=== PATIENT | male | born 1975 | race Caucasian/White ===

== ENCOUNTER 2021-08-07 15:18 | Inpatient (IN) | payer OTHER, SELFPAY ==
[2021-08-07 15:46] LABS: #Basophils 0.1 10x3/uL (0.0-0.2); #Eosinphils 0.3 10x3/uL (0.0-0.5); #Neutrophils 8.4 10x3/uL (1.5-8.4); %Basophils 0.5 % (0.0-2.0); %Eosinophils 2.2 % (0.0-6.0); %Lymphocytes 16.2 % (18.0-47.0); %Monocytes 8.3 % (0.0-10.0); %Neutrophils 72.4 % (40.0-75.0); Hemoglobin 15.2 g/dL (13.5-17.5); Mean Corpuscular HGB CONC 31.7 g/dL (32.0-36.0); Mean Corpuscular Hemoglobin 28.6 pg (27.0-33.0); Mean Corpuscular Volume 90.4 fl (81.2-95.1); Mean Platelet Volume 11.9 fl (7.4-10.4); Platelet Count 237 10x3/uL (150-450); RBC Distribution Width 15.8 % (11.5-14.5); Red Blood Cell (RBC) Count 5.31 10x6/uL (4.32-5.72); White Blood Cell (WBC) Count 11.6 10x3/uL (3.5-10.5)
[2021-08-07] MEDS ORDERED: Furosemide 40 MG/4 ML VIAL ONE (15:46)
[2021-08-07] MEDS ORDERED: Acetaminophen 500 MG TAB ONE (15:51)
[2021-08-07 16:10] LABS: ALT (SGPT) 105 U/L (8-55); AST (SGOT) 78 U/L (5-34); Albumin 3.8 g/dL (3.5-5.0); Alkaline Phosphatase 80 U/L (40-110); Anion Gap 15 mmol/L (10-20); BUN (Urea Nitrogen) 17 mg/dL (8.9-20.6); Bilirubin, Total 1.1 mg/dL (0.2-1.2); Calc. Creatinine Clearance 0 mL/min (70-130); Calcium 8.4 mg/dL (7.8-10.44); Carbon Dioxide 25 mmol/L (22-29); Chloride 104 mmol/L (98-107); Globulin 2.7 g/dL (2.4-3.5); Glucose 165 mg/dL (70-105); Potassium 4.6 mmol/L (3.5-5.1); Protein, Total 6.5 g/dL (6.0-8.3); Sodium 139 mmol/L (136-145)
[2021-08-07 16:34] LABS: CKMB 9.8 ng/mL (0-6.6)
[2021-08-07 17:27] LABS: SARS-CoV-2 NAA Rapid Test Not Detected (NotDetected)
[2021-08-07] MEDS ORDERED: Ondansetron PF 4 MG/2 ML Vial ONE (19:48)
[2021-08-07 20:05] LABS: Magnesium 1.9 mg/dL (1.6-2.6)
[2021-08-07 20:16] LABS: Troponin I 0.057 ng/mL (< 0.028)
[2021-08-07] MEDS ORDERED: Furosemide 40 MG/4 ML VIAL SLOW IVP SCH (22:00)
[2021-08-07] MEDS ORDERED: Carvedilol 3.125 MG TAB PO SCH (22:45)
[2021-08-07 23:38] LABS: Troponin I 0.051 ng/mL (< 0.028)
[2021-08-08] MEDS ORDERED: Potassium Chloride 20 MEQ TAB PO SCH (02:15)
[2021-08-08 03:38] VITALS: BMI 38.1
[2021-08-08 05:05] LABS: #Basophils 0.1 10x3/uL (0.0-0.2); #Eosinphils 0.4 10x3/uL (0.0-0.5); #Neutrophils 6.9 10x3/uL (1.5-8.4); %Basophils 0.7 % (0.0-2.0); %Eosinophils 3.5 % (0.0-6.0); %Lymphocytes 16.8 % (18.0-47.0); %Monocytes 9.7 % (0.0-10.0); Hemoglobin 13.8 g/dL (13.5-17.5); Mean Corpuscular HGB CONC 30.9 g/dL (32.0-36.0); Mean Corpuscular Hemoglobin 28.2 pg (27.0-33.0); Mean Corpuscular Volume 91.2 fl (81.2-95.1); Mean Platelet Volume 12.5 fl (7.4-10.4); Platelet Count 198 10x3/uL (150-450); RBC Distribution Width 15.8 % (11.5-14.5)
[2021-08-08 05:17] LABS: Anion Gap 13 mmol/L (10-20); BUN (Urea Nitrogen) 22 mg/dL (8.9-20.6); Calc. Creatinine Clearance 193 mL/min (70-130); Calcium 7.6 mg/dL (7.8-10.44); Carbon Dioxide 25 mmol/L (22-29); Cardiac Risk 5.5 (Less than 4.5); Chloride 105 mmol/L (98-107); Cholesterol 82 mg/dl (< 200 Desired); Glucose 110 mg/dL (70-105); HDL Cholesterol 15 mg/dL (>60 Neg Risk); LDL Cholesterol, Calculated 49 mg/dL; Potassium 3.9 mmol/L (3.5-5.1); Sodium 139 mmol/L (136-145); Triglycerides 91 mg/dL (Less than 150)
[2021-08-08] MEDS: Furosemide 40 MG/4 ML VIAL SLOW IVP SCH ×2 (06:40→13:55)
[2021-08-08] MEDS ORDERED: HumaLOG 300 UNITS/3 ML VIAL SC PRN ×2 (07:27)
[2021-08-08] MEDS ORDERED: Dextrose 5% in Water 1,000 ML IV PRN (07:27)
[2021-08-08] MEDS ORDERED: Dextrose 50% Abboject 50 ML SYRINGE SLOW IVP PRN (07:27)
[2021-08-08] MEDS: Spironolactone 25 MG TAB PO SCH (08:57)
[2021-08-08] MEDS: Carvedilol 3.125 MG TAB PO SCH ×2 (08:58→17:59)
[2021-08-08] MEDS: Aspirin Chewable 81 MG TAB PO SCH (08:58)
[2021-08-08] MEDS ORDERED: FLU VACC QS2021-22(6MOS UP)/PF 60 MCG/0.5 ML SYRINGE IM ONE (09:00)
[2021-08-08] MEDS ORDERED: Enoxaparin Sodium 40 MG/0.4 ML SYRINGE SC SCH (09:00)
[2021-08-08] MEDS ORDERED: Magnesium 2 GM/50 ML 2 GM in Premix Bag 1 BAG IVPB SCH (10:00)
[2021-08-08] MEDS ORDERED: Magnesium Sulfate 2 GM in Sodium Chloride 0.9% 100 ML IVPB SCH (10:00)
[2021-08-08 10:41] LABS: Anion Gap 14 mmol/L (10-20); BUN (Urea Nitrogen) 19 mg/dL (8.9-20.6); Calc. Creatinine Clearance 191 mL/min (70-130); Calcium 7.7 mg/dL (7.8-10.44); Carbon Dioxide 30 mmol/L (22-29); Chloride 101 mmol/L (98-107); Glucose 146 mg/dL (70-105); Potassium 4.3 mmol/L (3.5-5.1); Sodium 141 mmol/L (136-145)
[2021-08-08 11:17] LABS: Hemoglobin A1c 7.3 % (4.0-6.0)
[2021-08-09 04:54] LABS: Anion Gap 13 mmol/L (10-20); BUN (Urea Nitrogen) 19 mg/dL (8.9-20.6); Calc. Creatinine Clearance 173 mL/min (70-130); Calcium 7.8 mg/dL (7.8-10.44); Carbon Dioxide 31 mmol/L (22-29); Chloride 101 mmol/L (98-107); Glucose 141 mg/dL (70-105); Potassium 4.4 mmol/L (3.5-5.1); Sodium 141 mmol/L (136-145)
[2021-08-09] MEDS: Furosemide 40 MG/4 ML VIAL SLOW IVP SCH ×2 (06:05→14:31)
[2021-08-09] MEDS ORDERED: Enoxaparin Sodium 40 MG/0.4 ML SYRINGE SC SCH (09:00)
[2021-08-09] MEDS: Aspirin Chewable 81 MG TAB PO SCH (09:12)
[2021-08-09] MEDS: Carvedilol 3.125 MG TAB PO SCH ×2 (09:12→16:18)
[2021-08-09] MEDS: Spironolactone 25 MG TAB PO SCH (09:12)
[2021-08-09] MEDS ORDERED: Magnesium Citrate 300 ML BOT PO SCH (15:00)
[2021-08-10 04:32] LABS: Anion Gap 13 mmol/L (10-20); BUN (Urea Nitrogen) 16 mg/dL (8.9-20.6); Calc. Creatinine Clearance 216 mL/min (70-130); Calcium 7.9 mg/dL (7.8-10.44); Carbon Dioxide 27 mmol/L (22-29); Chloride 105 mmol/L (98-107); Glucose 124 mg/dL (70-105); Potassium 4.1 mmol/L (3.5-5.1); Sodium 141 mmol/L (136-145)
[2021-08-10] MEDS: Carvedilol 3.125 MG TAB PO SCH ×2 (05:28→16:13)
[2021-08-10] MEDS ORDERED: Vancomycin 1.5 GRAM/300 ML BAG 1.5 GM in Premix Bag 1 BAG IVPB SCH (05:30)
[2021-08-10] MEDS ORDERED: CEFAZOLIN 1 GM VIAL ONE ×2 (06:36→07:35)
[2021-08-10] MEDS ORDERED: Gentamicin 80 MG/2 ML VIAL ONE ×2 (06:37→06:39)
[2021-08-10] MEDS ORDERED: Fentanyl 100 MCG/2 ML VIAL ONE (06:40)
[2021-08-10] MEDS ORDERED: Ketamine 50 MG/ML (10ML VIAL) ONE (06:41)
[2021-08-10] MEDS ORDERED: Midazolam HCl 2 mg/2 ml Vial ONE (06:41)
[2021-08-10] MEDS ORDERED: Propofol 1,000 MG/100 ML VIAL IV ONE (06:42)
[2021-08-10] MEDS ORDERED: Lidocaine 1% (PF) 30 ML VIAL ONE (06:45)
[2021-08-10] MEDS: Furosemide 40 MG/4 ML VIAL SLOW IVP SCH ×2 (13:10→13:11)
[2021-08-10] MEDS: Bisacodyl 10 MG SUPP PR SCH ×2 (13:11→16:14)
[2021-08-10] MEDS: Spironolactone 25 MG TAB PO SCH (13:11)
[2021-08-10] MEDS: Aspirin Chewable 81 MG TAB PO SCH (13:11)
[2021-08-10] MEDS ORDERED: CEFAZOLIN 2 GM in Premix Bag 1 BAG IVPB SCH (14:00)
[2021-08-10] MEDS ORDERED: Piperacillin/Tazobactam 3.375 GM in Sodium Chloride 0.9% 100 ML IVPB SCH ×4 (17:00→22:15)
[2021-08-10 18:55] LABS: Bilirubin Neg (Negative); Blood, Urine Negative (Negative); Clarity Clear (Clear); Glucose, Urine (Dipstick) Normal (Negative); Ketone, Urine Negative (Negative); Leukocyte Negative (Negative); Nitrite Negative (Negative); Protein, Urine (Dipstick) Negative (Neg-Trace); Specific Gravity, Urine 1.005 (1.002-1.036); Urobilinogen Normal mg/dL (Less than 2)
[2021-08-10 19:00] LABS: Urine Culture Reflex No No
[2021-08-10 19:02] LABS: Bacteria/HPF None Seen HPF (None Seen); RBC/HPF None Seen HPF (0-3); Squamous Epithelial None Seen HPF (0-3); WBC/HPF None Seen HPF (0-3)
[2021-08-10] MEDS ORDERED: Piperacillin/Tazobactam 3.375 GM VIAL ONE (22:21)
[2021-08-11] MEDS ORDERED: Piperacillin/Tazobactam 3.375 GM in Sodium Chloride 0.9% 100 ML IVPB SCH (02:00)
[2021-08-11 04:31] LABS: Phosphorus 3.9 mg/dL (2.3-4.7)
[2021-08-11 04:48] LABS: Anion Gap 14 mmol/L (10-20); BUN (Urea Nitrogen) 15 mg/dL (8.9-20.6); Calc. Creatinine Clearance 178 mL/min (70-130); Calcium 7.9 mg/dL (7.8-10.44); Carbon Dioxide 27 mmol/L (22-29); Chloride 105 mmol/L (98-107); Glucose 255 mg/dL (70-105); Magnesium 1.9 mg/dL (1.6-2.6); Potassium 3.5 mmol/L (3.5-5.1); Sodium 142 mmol/L (136-145)
[2021-08-11] MEDS: Furosemide 40 MG/4 ML VIAL SLOW IVP SCH (05:53)
[2021-08-11] MEDS ORDERED: Clindamycin 150 MG CAP PO SCH (09:00)
[2021-08-11] MEDS: Aspirin Chewable 81 MG TAB PO SCH (09:26)
[2021-08-11] MEDS: Carvedilol 3.125 MG TAB PO SCH (09:26)
[2021-08-11] MEDS: Spironolactone 25 MG TAB PO SCH (09:26)
[2021-08-11] MEDS ORDERED: Potassium Chloride 20 MEQ TAB PO SCH (11:00)
[2021-08-11 12:22] VITALS: BP 134/81; TEMP 97.6
[2021-08-11] MEDS ORDERED: Furosemide 20 MG TAB PO SCH (14:00)
== END 2021-08-11 15:43 | disposition home or self-care (01) | DRG 226 ==
LOC: CSHERS 15:18 → CSHTELE 20:36
PROVIDERS: ADMIT Family Medicine; ATTEND Family Medicine
PROC: 0JH608Z Insertion of Defibrillator Generator into Chest Subcutaneous Tissue and Fascia, Open Approach (ICD-10-PCS; principal; 2021-08-10)
PROC: 02HK3KZ Insertion of Defibrillator Lead into Right Ventricle, Percutaneous Approach (ICD-10-PCS; 2021-08-10)
PROC: 02H63KZ Insertion of Defibrillator Lead into Right Atrium, Percutaneous Approach (ICD-10-PCS; 2021-08-10)
DX: I11.0 Hypertensive heart disease with heart failure (principal); I50.43 Acute on chronic combined systolic (congestive) and diastolic (congestive) heart failure; I49.01 Ventricular fibrillation; I47.2 Ventricular tachycardia; K61.1 Rectal abscess; Z20.822 Contact with and (suspected) exposure to COVID-19; E11.9 Type 2 diabetes mellitus without complications; N50.89 Other specified disorders of the male genital organs; K59.00 Constipation, unspecified; I49.5 Sick sinus syndrome; G47.33 Obstructive sleep apnea (adult) (pediatric); F11.21 Opioid dependence, in remission; R77.8 Other specified abnormalities of plasma proteins; I42.8 Other cardiomyopathies; I49.3 Ventricular premature depolarization
CPT/HCPCS: 33249; 36415; 36416; 71045; 76870; 80048; 80053; 80061; 81001; 82553; 83036; 83605; 83735; 83880; 84100; 84484; 85025; 87040; 87591; 93005; 93010; 93976; 94760; 96374; 96375; C1777; J0690; J1580; J1650; J1815; J1940; J2001; J2250; J2405; J2543; J2704; J3010; J3370; J3475; J3490; U0002

== ENCOUNTER 2021-09-22 16:26 | Inpatient (IN) | payer OTHER, SELFPAY ==
[2021-09-22 17:20] LABS: #Basophils 0.1 10x3/uL (0.0-0.2); #Eosinphils 0.5 10x3/uL (0.0-0.5); #Monocytes 0.9 10x3/uL (0.0-1.1); #Neutrophils 7.7 10x3/uL (1.5-8.4); %Basophils 0.8 % (0.0-2.0); %Eosinophils 4.2 % (0.0-6.0); %Lymphocytes 20.1 % (18.0-47.0); %Monocytes 7.7 % (0.0-10.0); %Neutrophils 66.9 % (40.0-75.0); Hemoglobin 15.6 g/dL (13.5-17.5); Mean Corpuscular HGB CONC 32.1 g/dL (32.0-36.0); Mean Corpuscular Hemoglobin 27.3 pg (27.0-33.0); Mean Corpuscular Volume 85.1 fl (81.2-95.1); Mean Platelet Volume 11.4 fl (7.4-10.4); Platelet Count 310 10x3/uL (150-450); RBC Distribution Width 15.8 % (11.5-14.5); Red Blood Cell (RBC) Count 5.71 10x6/uL (4.32-5.72); White Blood Cell (WBC) Count 11.6 10x3/uL (3.5-10.5)
[2021-09-22 17:35] LABS: ALT (SGPT) 88 U/L (8-55); AST (SGOT) 57 U/L (5-34); Albumin 3.8 g/dL (3.5-5.0); Alkaline Phosphatase 80 U/L (40-110); Anion Gap 15 mmol/L (10-20); BUN (Urea Nitrogen) 23 mg/dL (8.9-20.6); Bilirubin, Total 1.3 mg/dL (0.2-1.2); Calc. Creatinine Clearance 0 mL/min (70-130); Calcium 8.7 mg/dL (7.8-10.44); Carbon Dioxide 23 mmol/L (22-29); Chloride 102 mmol/L (98-107); Globulin 2.5 g/dL (2.4-3.5); Glucose 146 mg/dL (70-105); Potassium 4.9 mmol/L (3.5-5.1); Protein, Total 6.3 g/dL (6.0-8.3); Sodium 135 mmol/L (136-145)
[2021-09-22] MEDS ORDERED: Furosemide 100 MG/10 ML VIAL ONE (18:31)
[2021-09-23 04:09] LABS: Anion Gap 11 mmol/L (10-20); BUN (Urea Nitrogen) 23 mg/dL (8.9-20.6); Calc. Creatinine Clearance 0 mL/min (70-130); Calcium 8.2 mg/dL (7.8-10.44); Carbon Dioxide 30 mmol/L (22-29); Chloride 100 mmol/L (98-107); Glucose 198 mg/dL (70-105); Potassium 3.8 mmol/L (3.5-5.1); Sodium 137 mmol/L (136-145); Uric Acid 10.6 mg/dL (3.5-7.2)
[2021-09-23 04:10] LABS: #Basophils 0.1 10x3/uL (0.0-0.2); #Eosinphils 0.9 10x3/uL (0.0-0.5); #Monocytes 0.7 10x3/uL (0.0-1.1); #Neutrophils 5.9 10x3/uL (1.5-8.4); %Eosinophils 9.6 % (0.0-6.0); %Lymphocytes 19.1 % (18.0-47.0); %Monocytes 7.5 % (0.0-10.0); %Neutrophils 62.6 % (40.0-75.0); Hemoglobin 14.7 g/dL (13.5-17.5); Mean Corpuscular HGB CONC 32.5 g/dL (32.0-36.0); Mean Corpuscular Hemoglobin 27.8 pg (27.0-33.0); Mean Corpuscular Volume 85.4 fl (81.2-95.1); Mean Platelet Volume 11.5 fl (7.4-10.4); Platelet Count 248 10x3/uL (150-450); RBC Distribution Width 16.2 % (11.5-14.5); Red Blood Cell (RBC) Count 5.29 10x6/uL (4.32-5.72); White Blood Cell (WBC) Count 9.4 10x3/uL (3.5-10.5)
[2021-09-23 04:13] LABS: Troponin I 0.023 ng/mL (< 0.028)
[2021-09-23 04:14] LABS: SARS-CoV-2 NAA Rapid Test Not Detected (NotDetected)
[2021-09-23] MEDS ORDERED: Furosemide 100 MG/10 ML VIAL ONE (05:43)
[2021-09-23] MEDS: Furosemide 100 MG/10 ML VIAL SLOW IVP SCH ×2 (05:45→14:56)
[2021-09-23] MEDS ORDERED: Potassium Chloride 20 MEQ TAB PO SCH (06:30)
[2021-09-23] MEDS ORDERED: Potassium Chloride 20 MEQ TAB ONE (07:19)
[2021-09-23] MEDS ORDERED: Aspirin Chewable 81 MG TAB ONE (07:36)
[2021-09-23] MEDS ORDERED: Enoxaparin Sodium 40 MG/0.4 ML SYRINGE ONE (07:36)
[2021-09-23] MEDS ORDERED: Carvedilol 3.125 MG TAB ONE (07:38)
[2021-09-23] MEDS ORDERED: Spironolactone 25 MG TAB PO SCH ×2 (08:00→15:30)
[2021-09-23] MEDS: Enoxaparin Sodium 40 MG/0.4 ML SYRINGE SC SCH (08:19)
[2021-09-23] MEDS: Carvedilol 3.125 MG TAB PO SCH ×2 (08:19→14:56)
[2021-09-23] MEDS: Aspirin 81 mg Enteric Coated Tablet PO SCH (08:19)
[2021-09-23 14:06] VITALS: BMI 34.4
[2021-09-23] MEDS: Carvedilol 6.25 MG TAB PO SCH (18:26)
[2021-09-24 05:47] LABS: #Basophils 0.1 10x3/uL (0.0-0.2); #Eosinphils 1.1 10x3/uL (0.0-0.5); #Monocytes 0.9 10x3/uL (0.0-1.1); #Neutrophils 5.2 10x3/uL (1.5-8.4); %Basophils 0.8 % (0.0-2.0); %Eosinophils 11.2 % (0.0-6.0); %Lymphocytes 25.9 % (18.0-47.0); %Monocytes 9.2 % (0.0-10.0); %Neutrophils 52.7 % (40.0-75.0); Hemoglobin 15.4 g/dL (13.5-17.5); Mean Corpuscular HGB CONC 32.6 g/dL (32.0-36.0); Mean Corpuscular Hemoglobin 27.9 pg (27.0-33.0); Mean Corpuscular Volume 85.8 fl (81.2-95.1); Platelet Count 281 10x3/uL (150-450); RBC Distribution Width 16.9 % (11.5-14.5); Red Blood Cell (RBC) Count 5.51 10x6/uL (4.32-5.72); White Blood Cell (WBC) Count 9.9 10x3/uL (3.5-10.5)
[2021-09-24 05:50] LABS: Anion Gap 13 mmol/L (10-20); BUN (Urea Nitrogen) 22 mg/dL (8.9-20.6); Calc. Creatinine Clearance 147 mL/min (70-130); Calcium 8.1 mg/dL (7.8-10.44); Carbon Dioxide 32 mmol/L (22-29); Chloride 100 mmol/L (98-107); Glucose 118 mg/dL (70-105); Potassium 3.8 mmol/L (3.5-5.1); Sodium 141 mmol/L (136-145)
[2021-09-24] MEDS: Furosemide 100 MG/10 ML VIAL SLOW IVP SCH ×2 (05:57→14:06)
[2021-09-24] MEDS ORDERED: Dextrose 50% Abboject 50 ML SYRINGE SLOW IVP PRN (07:21)
[2021-09-24] MEDS ORDERED: HumaLOG 300 UNITS/3 ML VIAL SC PRN (07:21)
[2021-09-24] MEDS ORDERED: Dextrose 5% in Water 1,000 ML IV PRN (07:21)
[2021-09-24] MEDS: Enoxaparin Sodium 40 MG/0.4 ML SYRINGE SC SCH (08:33)
[2021-09-24] MEDS: Famotidine 20 MG TAB PO SCH ×2 (08:34→20:55)
[2021-09-24] MEDS: Carvedilol 6.25 MG TAB PO SCH ×2 (08:34→17:08)
[2021-09-24] MEDS: Aspirin 81 mg Enteric Coated Tablet PO SCH (08:34)
[2021-09-24] MEDS: HumaLOG 300 UNITS/3 ML VIAL SC PRN ×2 (12:36→17:09)
[2021-09-24] MEDS ORDERED: Buprenorphine 8mg/Naloxone 2mg per 1 FILM PO SCH (18:00)
[2021-09-25 05:23] LABS: Anion Gap 13 mmol/L (10-20); BUN (Urea Nitrogen) 18 mg/dL (8.9-20.6); Calc. Creatinine Clearance 166 mL/min (70-130); Carbon Dioxide 31 mmol/L (22-29); Chloride 101 mmol/L (98-107); Glucose 132 mg/dL (70-105); Potassium 3.5 mmol/L (3.5-5.1); Sodium 141 mmol/L (136-145)
[2021-09-25 05:48] LABS: #Basophils 0.1 10x3/uL (0.0-0.2); #Eosinphils 1.1 10x3/uL (0.0-0.5); #Monocytes 0.9 10x3/uL (0.0-1.1); #Neutrophils 5.6 10x3/uL (1.5-8.4); %Basophils 1.2 % (0.0-2.0); %Eosinophils 10.4 % (0.0-6.0); %Lymphocytes 25.3 % (18.0-47.0); %Monocytes 8.6 % (0.0-10.0); %Neutrophils 54.2 % (40.0-75.0); Hemoglobin 15.9 g/dL (13.5-17.5); Mean Corpuscular HGB CONC 32.6 g/dL (32.0-36.0); Mean Corpuscular Hemoglobin 27.9 pg (27.0-33.0); Mean Corpuscular Volume 85.8 fl (81.2-95.1); Mean Platelet Volume 11.8 fl (7.4-10.4); Platelet Count 281 10x3/uL (150-450); RBC Distribution Width 17.2 % (11.5-14.5); Red Blood Cell (RBC) Count 5.69 10x6/uL (4.32-5.72); White Blood Cell (WBC) Count 10.3 10x3/uL (3.5-10.5)
[2021-09-25] MEDS ORDERED: Potassium Chloride 10 MEQ TAB PO SCH (08:00)
[2021-09-25] MEDS: Famotidine 20 MG TAB PO SCH (08:38)
[2021-09-25] MEDS: Enoxaparin Sodium 40 MG/0.4 ML SYRINGE SC SCH (08:38)
[2021-09-25] MEDS: Carvedilol 6.25 MG TAB PO SCH (08:38)
[2021-09-25] MEDS: Aspirin 81 mg Enteric Coated Tablet PO SCH (08:38)
[2021-09-25] MEDS ORDERED: Furosemide 40 MG TAB PO SCH (09:00)
[2021-09-25] MEDS ORDERED: Valsartan 80 MG TAB PO SCH (09:00)
[2021-09-25] MEDS ORDERED: Buprenorphine 8mg/Naloxone 2mg per 1 FILM PO SCH (09:00)
[2021-09-25] MEDS: HumaLOG 300 UNITS/3 ML VIAL SC PRN (12:05)
[2021-09-25 12:44] VITALS: BP 156/85; TEMP 96.3
== END 2021-09-25 15:02 | disposition home or self-care (01) | DRG 291 ==
LOC: CSHERS 16:26 → CSHERHOLD 21:31 → CSHTELE 09-23 11:46
PROVIDERS: ADMIT Family Medicine; ATTEND Family Medicine
DX: I11.0 Hypertensive heart disease with heart failure (principal); I50.43 Acute on chronic combined systolic (congestive) and diastolic (congestive) heart failure; I42.8 Other cardiomyopathies; Z20.822 Contact with and (suspected) exposure to COVID-19; E11.9 Type 2 diabetes mellitus without complications; I42.0 Dilated cardiomyopathy; R19.7 Diarrhea, unspecified; I49.3 Ventricular premature depolarization; F41.9 Anxiety disorder, unspecified; G47.30 Sleep apnea, unspecified; F11.21 Opioid dependence, in remission; E78.5 Hyperlipidemia, unspecified; Z79.82 Long term (current) use of aspirin; Z95.810 Presence of automatic (implantable) cardiac defibrillator; Z79.899 Other long term (current) drug therapy; Z91.14 Patient's other noncompliance with medication regimen; I25.2 Old myocardial infarction
CPT/HCPCS: 36415; 36416; 71045; 80048; 80053; 83735; 83880; 84443; 84484; 84550; 85025; 93005; 93010; 93306; 94760; 96374; 97139; J1650; J1940; U0002

== ENCOUNTER 2024-01-26 23:24 | Inpatient (IN) | payer SELFPAY ==
[2024-01-27] MEDS ORDERED: Senokot S 8.6-50 MG TAB PO PRN (01:19)
[2024-01-27] MEDS ORDERED: Guaifenesin DM 100-10/5 ML UDCUP PO PRN (01:19)
[2024-01-27] MEDS ORDERED: Dextrose 5% in Water 1,000 ML IV PRN (01:19)
[2024-01-27] MEDS ORDERED: Glucagon 1 MG/ML KIT IM PRN (01:19)
[2024-01-27] MEDS ORDERED: Dextrose 50% Abboject 50 ML SYRINGE SLOW IVP PRN (01:19)
[2024-01-27] MEDS ORDERED: Calcium Carbonate 500 MG ChewTAB PO PRN (01:19)
[2024-01-27 02:08] LABS: Anion Gap 13 mmol/L (10-20); BUN (Urea Nitrogen) 19 mg/dL (8.9-20.6); Calc. Creatinine Clearance 146 mL/min (70-130); Calcium 8.2 mg/dL (7.8-10.44); Carbon Dioxide 24 mmol/L (22-29); Chloride 106 mmol/L (98-107); Estimated GFR 86; Glucose 146 mg/dL (70-105); Magnesium 2.4 mg/dL (1.6-2.6); Potassium 4.2 mmol/L (3.5-5.1); Sodium 139 mmol/L (136-145)
[2024-01-27 02:16] LABS: Cardiac Risk 5.8 (Less than 4.5); Cholesterol 121 mg/dl (< 200 Desired); HDL Cholesterol 21 mg/dL (>60 Neg Risk); LDL Cholesterol, Calculated 82 mg/dL; Triglycerides 90 mg/dL (Less than 150)
[2024-01-27 02:22] LABS: Critical Call Chem Troponin I OS.YZ @0218; Troponin I 0.304 ng/mL (< 0.028)
[2024-01-27] MEDS: Enoxaparin 120 MG/0.8 ML SYRINGE SC SCH ×2 (02:40→13:44)
[2024-01-27 05:29] LABS: Critical Call Chem Troponin I OS.YZ 0520; Troponin I 0.273 ng/mL (< 0.028)
[2024-01-27] MEDS: Furosemide 40 MG (4 mL) VIAL SLOW IVP SCH (06:09)
[2024-01-27] MEDS: HumaLOG 300 UNITS/3 ML VIAL SC PRN (06:44)
[2024-01-27] MEDS: Pantoprazole DR 40 MG TAB PO SCH (09:12)
[2024-01-27] MEDS: Sacubitril 24MG/Valsartan 26 MG TAB PO SCH (09:12)
[2024-01-27] MEDS: Spironolactone 25 MG TAB PO SCH (09:12)
[2024-01-27] MEDS: Aspirin 81 mg Enteric Coated Tablet PO SCH (09:12)
[2024-01-27] MEDS: Carvedilol 6.25 MG TAB PO SCH (09:12)
[2024-01-27] MEDS: Empagliflozin 10 MG TAB PO SCH (09:12)
[2024-01-27] MEDS: Ondansetron PF 4 MG/2 ML Vial IVP PRN (14:18)
[2024-01-27 15:03] LABS: Critical Call Chem Troponin I NUR.WB 1502 Read back result; Troponin I 0.219 ng/mL (< 0.028)
[2024-01-27] MEDS: hydrOXYzine 25 MG TAB PO PRN (20:58)
[2024-01-28 06:22] VITALS: BMI 32.5
[2024-01-28 10:46] LABS: Anion Gap 15 mmol/L (10-20); BUN (Urea Nitrogen) 23 mg/dL (8.9-20.6); Calc. Creatinine Clearance 131 mL/min (70-130); Calcium 8.4 mg/dL (7.8-10.44); Carbon Dioxide 26 mmol/L (22-29); Chloride 102 mmol/L (98-107); Estimated GFR 75; Glucose 198 mg/dL (70-105); Potassium 4.6 mmol/L (3.5-5.1); Sodium 138 mmol/L (136-145)
[2024-01-28] MEDS: Bumetanide 1 MG/4 ML VIAL IVP SCH (13:05)
[2024-01-28] MEDS: busPIRone HCl 5 MG TAB PO PRN (16:55)
[2024-01-28] MEDS: Zolpidem Tartrate 5 MG TAB PO PRN (22:02)
[2024-01-29 09:02] LABS: #Basophils 0.08 10x3/uL (0.0-0.2); #Eosinphils 0.27 10x3/uL (0.0-0.5); #Neutrophils 4.82 10x3/uL (1.5-8.4); %Eosinophils 3.4 % (0.0-6.0); %Lymphocytes 27.8 % (18.0-47.0); %Monocytes 7.5 % (0.0-10.0); %Neutrophils 60.2 % (40.0-75.0); Hematocrit 49.2 % (38.8-50.0); Hemoglobin 16.4 g/dL (13.5-17.5); Mean Corpuscular HGB CONC 33.3 g/dL (32.0-36.0); Mean Corpuscular Hemoglobin 30.5 pg (27.0-33.0); Mean Corpuscular Volume 91.4 fl (81.2-95.1); Mean Platelet Volume 12.4 fl (7.4-10.4); Platelet Count 188 10x3/uL (150-450); RBC Distribution Width 15.7 % (11.5-14.5); Red Blood Cell (RBC) Count 5.38 10x6/uL (4.32-5.72)
[2024-01-29] MEDS: Acetaminophen 325 MG TAB PO PRN (09:08)
[2024-01-29 12:07] LABS: Sodium 139 mmol/L (136-145)
[2024-01-29 12:08] LABS: Anion Gap 12 mmol/L (10-20); BUN (Urea Nitrogen) 19 mg/dL (8.9-20.6); Calc. Creatinine Clearance 138 mL/min (70-130); Calcium 8.3 mg/dL (7.6-10.4); Carbon Dioxide 29 mmol/L (22-29); Chloride 102 mmol/L (98-107); Estimated GFR 80; Glucose 156 mg/dL (70-105); Potassium 4.4 mmol/L (3.5-5.1)
[2024-01-29 12:45] LABS: Magnesium 2.2 mg/dL (1.6-2.6)
[2024-01-29] MEDS: Bumetanide 1 MG TAB PO SCH (15:59)
[2024-01-29 16:10] VITALS: BP 95/65; TEMP 98.1
== END 2024-01-29 16:11 | disposition home or self-care (01) | DRG 280 ==
LOC: CSHTELE 01-27 01:01
PROVIDERS: ADMIT Student in an Organized Health Care Education/Training Program; ATTEND Family Medicine
DX: I11.0 Hypertensive heart disease with heart failure (principal); I50.43 Acute on chronic combined systolic (congestive) and diastolic (congestive) heart failure; I21.A1 Myocardial infarction type 2; I42.8 Other cardiomyopathies; I49.3 Ventricular premature depolarization; Z79.82 Long term (current) use of aspirin; Z79.899 Other long term (current) drug therapy; E11.9 Type 2 diabetes mellitus without complications; G47.33 Obstructive sleep apnea (adult) (pediatric); Z95.810 Presence of automatic (implantable) cardiac defibrillator; Z99.89 Dependence on other enabling machines and devices
CPT/HCPCS: 36415; 36416; 80048; 80061; 83735; 83880; 84443; 84484; 85025; 94760; J1650; J1815; J1940; J2405; J3490